=== PATIENT | male | born 1960 | race Two or more races ===

== ENCOUNTER 2016-05-16 13:03 | Outpatient (CLI) | END 2016-05-16 13:04 | LOC: LAB 13:03 → OUTPT 13:04 | PROVIDERS: ATTEND Family Medicine | DX: M79.603 Pain in arm, unspecified (principal) ==

== ENCOUNTER 2016-05-24 08:23 | Outpatient (CLI) ==
--- NOTE | 2016-05-24 08:51 | DI ---
EXAM: Chest two views HISTORY: Cough COMPARISON: None TECHNIQUE: Two views of the chest were performed FINDINGS: The lungs are clear. There is no pleural effusion or pneumothorax. The heart is normal in size. The mediastinal contour is normal. There are no acute abnormalities of the bones. IMPRESSION: No acute cardiopulmonary process.
== END 2016-05-24 08:24 | disposition home or self-care (01) ==
LOC: RAD 08:23
PROVIDERS: ATTEND Family Medicine
DX: R05 Cough (principal)

== ENCOUNTER → 2016-07-04 | Emergency (ER) | LOC: OUTPT 10:42 → ED 10:42 | DX: T14.8 Other injury of unspecified body region (principal); W46.0XXA Contact with hypodermic needle, initial encounter; Y93.F9 Activity, other caregiving; Y92.238 Other place in hospital as the place of occurrence of the external cause; Y99.0 Civilian activity done for income or pay | CPT/HCPCS: 36415; 99282 ==

== ENCOUNTER 2016-10-15 14:37 | Outpatient (CLI) | END 2016-10-15 14:38 | disposition home or self-care (01) | LOC: LAB 14:37 | PROVIDERS: ATTEND General Practice | DX: Z77.21 Contact with and (suspected) exposure to potentially hazardous body fluids (principal); Y99.0 Civilian activity done for income or pay | CPT/HCPCS: 36415 ==

== ENCOUNTER 2018-03-30 07:16 | Outpatient (CLI) ==
--- NOTE | 2018-03-30 08:12 | DI ---
EXAM: Chest two views HISTORY: Cough COMPARISON: 05/24/2016 TECHNIQUE: Two views of the chest were performed FINDINGS: The lungs are clear. There is no pleural effusion or pneumothorax. The heart is normal i n size. The mediastinal contour is normal. There are no acute abnormalities of the bones. IMPRESSION: No acute cardiopulmonary process.
== END 2018-03-30 07:17 | disposition home or self-care (01) ==
LOC: RAD 07:16
PROVIDERS: ATTEND Family Medicine
DX: R05 Cough (principal); R53.1 Weakness; Z12.5 Encounter for screening for malignant neoplasm of prostate
CPT/HCPCS: 36415; 82306; 82626